=== PATIENT | male | born 1970 | race Hispanic/Latino ===

== ENCOUNTER 2021-04-16 06:15 | Inpatient (IN) | payer SELFPAY ==
[2021-04-16] MEDS ORDERED: SODIUM CHLORIDE 0.9% 1000 ML 1,000 ML IV ONE (06:34)
[2021-04-16] MEDS ORDERED: DEXTROSE 50% IN WATER (25GM) 50 ML SYRINGE IV ONE (06:34)
[2021-04-16] MEDS ORDERED: NALOXONE 2 MG/2 ML INJ IV ONE (06:34)
--- NOTE | 2021-04-16 06:39 | Emergency Department Report ---
HPI - General Time Seen by Provider: 04/16/21 06:34 - HPI HPI: This is a middle-aged male, who appears to be in his 50s, who was brought in by EMS after he was found on the side of the road unresponsive. Apparently there was a bystander who told EMS that the patient had been using heroin and that his name is Gabe. The patient does respond to his name and to tactile stimuli, but just says "yeah" to everything and then goes immediately back to sleep. The patient received 2 mg of intranasal Narcan with EMS without any response. No obvious signs of trauma. ED Review of Systems ROS: Stated complaint: UNRESPONSIVE Other details as noted in HPI Comment: Unobtainable due to pts medical conditions Physical Exam - Physical Exam Physical Exam: GENERAL: The patient is unresponsive. HENT: Normocephalic. Atraumatic. Patient has moist mucous membranes. EYES: Pupils equal reactive to light bilaterally. NECK: Supple. Trachea is midline. CHEST/LUNGS: Clear to auscultation. There is no respiratory distress noted. HEART/CARDIOVASCULAR: Regular. There is no tachycardia. There is no murmur. ABDOMEN: Abdomen is soft. Patient has normal bowel sounds. There is no abdominal distention. SKIN: Skin is warm and dry. NEURO: The patient is intoxicated or sedated, but is essentially unresponsive. He will briefly open his eyes or grunt to his name or tactile stimuli, but goes right back to sleep if not continuously stimulated. MUSCULOSKELETAL: There is no obvious deformity. ED Course - Consultations Consultation #1: 04/16/21 09:55 I spoke to JULIANN Anguiano for [facility] cardiology, and he agreed that we should start heparin on the patient for now, and they will see the patient as a consult. ED Medical Decision Making - Lab Data Result diagrams: 04/16/21 07:18 04/16/21 12:22 Lab Results 04/16/21 04/16/21 04/16/21 Range/Units 07:18 07:18 07:18 WBC 18.5 H (4.5-11.0) K/mm3 RBC 5.48 H (3.65-5.03) M/mm3 Hgb 15.5 H (11.8-15.2) gm/dl Hct 48.2 H (35.5-45.6) % MCV 88 (84-94) fl MCH 28 (28-32) pg MCHC 32 (32-34) % RDW 15.0 (13.2-15.2) % Plt Count 280 (140-440) K/mm3 Lymph % (Auto) 4.1 L (13.4-35.0) % Mcminn % (Auto) 6.9 (0.0-7.3) % Eos % (Auto) 0.1 (0.0-4.3) % Baso % (Auto) 0.4 (0.0-1.8) % Lymph # (Auto) 0.8 L (1.2-5.4) K/mm3 Mcminn # (Auto) 1.3 H (0.0-0.8) K/mm3 Eos # (Auto) 0.0 (0.0-0.4) K/mm3 Baso # (Auto) 0.1 (0.0-0.1) K/mm3 Seg Neutrophils % 88.5 H (40.0-70.0) % Seg Neutrophils # 16.4 H (1.8-7.7) K/mm3 PT 13.6 (12.2-14.9) Sec. INR 0.94 (0.87-1.13) APTT (24.2-36.6) Sec. Sodium 144 (137-145) mmol/L Potassium 6.0 H (3.6-5.0) mmol/L Chloride 103.2 (98-107) mmol/L Carbon Dioxide 27 (22-30) mmol/L Anion Gap 20 mmol/L BUN 25 H (9-20) mg/dL Creatinine 1.9 H (0.8-1.3) mg/dL Estimated GFR 45 ml/min BUN/Creatinine Ratio 13 % Glucose 74 L (75-100) mg/dL Calcium 9.2 (8.4-10.2) mg/dL Total Bilirubin 0.30 (0.1-1.2) mg/dL AST 71 H (5-40) units/L ALT 40 (7-56) units/L Alkaline Phosphatase 111 (35-129) units/L Ammonia (25-60) umol/L Total Creatine Kinase (55-170) units/L Troponin T 0.619 H* (0.00-0.029) ng/mL Total Protein 7.2 (6.3-8.2) g/dL Albumin 4.4 (3.9-5) g/dL Albumin/Globulin Ratio 1.6 % Triglycerides 83 (2-149) mg/dL Cholesterol 188 (50-199) mg/dL LDL Cholesterol Direct 121 (50-130) mg/dL HDL Cholesterol 57 (40-59) mg/dL Cholesterol/HDL Ratio 3.29 % TSH (0.270-4.200) mlU/mL Salicylates (2.8-20.0) mg/dL Acetaminophen (10.0-30.0) ug/mL Plasma/Serum Alcohol (0-0.07) % 04/16/21 04/16/21 04/16/21 Range/Units 07:18 07:18 07:18 WBC (4.5-11.0) K/mm3 RBC (3.65-5.03) M/mm3 Hgb (11.8-15.2) gm/dl Hct (35.5-45.6) % MCV (84-94) fl MCH (28-32) pg MCHC (32-34) % RDW (13.2-15.2) % Plt Count (140-440) K/mm3 Lymph % (Auto) (13.4-35.0) % Mcminn % (Auto) (0.0-7.3) % Eos % (Auto) (0.0-4.3) % Baso % (Auto) (0.0-1.8) % Lymph # (Auto) (1.2-5.4) K/mm3 Mcminn # (Auto) (0.0-0.8) K/mm3 Eos # (Auto) (0.0-0.4) K/mm3 Baso # (Auto) (0.0-0.1) K/mm3 Seg Neutrophils % (40.0-70.0) % Seg Neutrophils # (1.8-7.7) K/mm3 PT (12.2-14.9) Sec. INR (0.87-1.13) APTT (24.2-36.6) Sec. Sodium (137-145) mmol/L Potassium (3.6-5.0) mmol/L Chloride (98-107) mmol/L Carbon Dioxide (22-30) mmol/L Anion Gap mmol/L BUN (9-20) mg/dL Creatinine (0.8-1.3) mg/dL Estimated GFR ml/min BUN/Creatinine Ratio % Glucose (75-100) mg/dL Calcium (8.4-10.2) mg/dL Total Bilirubin (0.1-1.2) mg/dL AST (5-40) units/L ALT (7-56) units/L Alkaline Phosphatase (35-129) units/L Ammonia 23.0 L (25-60) umol/L Total Creatine Kinase (55-170) units/L Troponin T (0.00-0.029) ng/mL Total Protein (6.3-8.2) g/dL Albumin (3.9-5) g/dL Albumin/Globulin Ratio % Triglycerides (2-149) mg/dL Cholesterol (50-199) mg/dL LDL Cholesterol Direct (50-130) mg/dL HDL Cholesterol (40-59) mg/dL Cholesterol/HDL Ratio % TSH 4.650 H (0.270-4.200) mlU/mL Salicylates < 0.3 L (2.8-20.0) mg/dL Acetaminophen (10.0-30.0) ug/mL Plasma/Serum Alcohol (0-0.07) % 04/16/21 04/16/21 04/16/21 Range/Units 07:18 07:18 07:18 WBC (4.5-11.0) K/mm3 RBC (3.65-5.03) M/mm3 Hgb (11.8-15.2) gm/dl Hct (35.5-45.6) % MCV (84-94) fl MCH (28-32) pg MCHC (32-34) % RDW (13.2-15.2) % Plt Count (140-440) K/mm3 Lymph % (Auto) (13.4-35.0) % Mcminn % (Auto) (0.0-7.3) % Eos % (Auto) (0.0-4.3) % Baso % (Auto) (0.0-1.8) % Lymph # (Auto) (1.2-5.4) K/mm3 Mcminn # (Auto) (0.0-0.8) K/mm3 Eos # (Auto) (0.0-0.4) K/mm3 Baso # (Auto) (0.0-0.1) K/mm3 Seg Neutrophils % (40.0-70.0) % Seg Neutrophils # (1.8-7.7) K/mm3 PT (12.2-14.9) Sec. INR (0.87-1.13) APTT (24.2-36.6) Sec. Sodium (137-145) mmol/L Potassium (3.6-5.0) mmol/L Chloride (98-107) mmol/L Carbon Dioxide (22-30) mmol/L Anion Gap mmol/L BUN (9-20) mg/dL Creatinine (0.8-1.3) mg/dL Estimated GFR ml/min BUN/Creatinine Ratio % Glucose (75-100) mg/dL Calcium (8.4-10.2) mg/dL Total Bilirubin (0.1-1.2) mg/dL AST (5-40) units/L ALT (7-56) units/L Alkaline Phosphatase (35-129) units/L Ammonia (25-60) umol/L Total Creatine Kinase 1522 H (55-170) units/L Troponin T (0.00-0.029) ng/mL Total Protein (6.3-8.2) g/dL Albumin (3.9-5) g/dL Albumin/Globulin Ratio % Triglycerides (2-149) mg/dL Cholesterol (50-199) mg/dL LDL Cholesterol Direct (50-130) mg/dL HDL Cholesterol (40-59) mg/dL Cholesterol/HDL Ratio % TSH (0.270-4.200) mlU/mL Salicylates (2.8-20.0) mg/dL Acetaminophen 5.0 L (10.0-30.0) ug/mL Plasma/Serum Alcohol < 0.01 (0-0.07) % 04/16/21 Range/Units 07:18 WBC (4.5-11.0) K/mm3 RBC (3.65-5.03) M/mm3 Hgb (11.8-15.2) gm/dl Hct (35.5-45.6) % MCV (84-94) fl MCH (28-32) pg MCHC (32-34) % RDW (13.2-15.2) % Plt Count (140-440) K/mm3 Lymph % (Auto) (13.4-35.0) % Mcminn % (Auto) (0.0-7.3) % Eos % (Auto) (0.0-4.3) % Baso % (Auto) (0.0-1.8) % Lymph # (Auto) (1.2-5.4) K/mm3 Mcminn # (Auto) (0.0-0.8) K/mm3 Eos # (Auto) (0.0-0.4) K/mm3 Baso # (Auto) (0.0-0.1) K/mm3 Seg Neutrophils % (40.0-70.0) % Seg Neutrophils # (1.8-7.7) K/mm3 PT (12.2-14.9) Sec. INR (0.87-1.13) APTT 30.6 (24.2-36.6) Sec. Sodium (137-145) mmol/L Potassium (3.6-5.0) mmol/L Chloride (98-107) mmol/L Carbon Dioxide (22-30) mmol/L Anion Gap mmol/L BUN (9-20) mg/dL Creatinine (0.8-1.3) mg/dL Estimated GFR ml/min BUN/Creatinine Ratio % Glucose (75-100) mg/dL Calcium (8.4-10.2) mg/dL Total Bilirubin (0.1-1.2) mg/dL AST (5-40) units/L ALT (7-56) units/L Alkaline Phosphatase (35-129) units/L Ammonia (25-60) umol/L Total Creatine Kinase (55-170) units/L Troponin T (0.00-0.029) ng/mL Total Protein (6.3-8.2) g/dL Albumin (3.9-5) g/dL Albumin/Globulin Ratio % Triglycerides (2-149) mg/dL Cholesterol (50-199) mg/dL LDL Cholesterol Direct (50-130) mg/dL HDL Cholesterol (40-59) mg/dL Cholesterol/HDL Ratio % TSH (0.270-4.200) mlU/mL Salicylates (2.8-20.0) mg/dL Acetaminophen (10.0-30.0) ug/mL Plasma/Serum Alcohol (0-0.07) % - EKG Data -: EKG Interpreted by Me EKG shows normal: sinus rhythm, axis (Left axis deviation), intervals (Slightly prolonged QTC), QRS complexes (Left anterior fascicular block), ST-T waves (Lateral and inferior mild ST depressions) Rate: tachycardia (101 bpm) - EKG Data When compared to previous EKG there are: previous EKG unavailable Interpretation: other (Sinus rhythm at 101 bpm, left axis deviation, left anterior fascicular block, slightly prolonged QTC, ST depressions in the inferio r and lateral leads) - Radiology Data Radiology results: report reviewed, image reviewed interpreted by me: Chest x-ray does not show any acute process. There are no pleural effusions, obvious pneumonia and there is no pneumothorax. No widened mediastinum. CT HEAD WITHOUT CONTRAST INDICATION / CLINICAL INFORMATION: Altered Mental Status. TECHNIQUE: All CT scans at this location are performed using CT dose re duction for ALARA by means of automated exposure control. COMPARISON: None available. FINDINGS: HEMORRHAGE: None. EXTRA-AXIAL SPACES: Normal in size and morphology for the patient's age. VENTRICULAR SYSTEM: Normal in size and morphology for the patient's age. CEREBRAL PARENCHYMA: No significant abno rmality. No acute territorial infarct. MIDLINE SHIFT / HERNIATION: None. CEREBELLUM / BRAINSTEM: No significant abnormality. ORBITS: Normal as visualized SOFT TISSUES: No significant abnormality. SKULL: No significant abnormality. PARANASAL SINUSES / MASTOID AIR CELLS: Normal as visualized ADDITIONAL FINDINGS: None. IMPRESSION: 1. No acute intracranial abnormality. CT CERVICAL SPINE WITHOUT CONTRAST INDICATION / CLINICAL INFORMATION: Unresponsive on the side of the road. TECHNIQUE: Axial CT images were obtained through the cervical spine. Sagittal and coronal reformatted images were produced. All CT scans at this location are performed using CT dose reduction for ALARA by means of automated exposure control. COMPARISON: None available. FINDINGS: VERTEBRAE: No significant abnormality. ALIGNMENT: No significant abnormality. DISC SPACES: There is disc space narrowing and endplate osteophytosis at C5-C6 greater than C6-C7. FACET JOINTS: There is moderate right degenerative facet disease at C4-C5. CRANIOCERVICAL JUNCTION:No significant abnormality. SPINAL CANAL: No significant abnormality. PARASPINAL SOFT TISSUES: No significant abnormality. ADDITIONAL FINDINGS: None. LUNG APICES: Centrilobular emphysema. Mucoid material within the trachea. IMPRESSION: 1. No acute fracture or static subluxation of the cervical spine. 2. Degenerative disc and facet disease as above. 3. Emphysema. 4. Mucoid material within the trachea. - Medical Decision Making This patient initially came in unresponsive after he was found laying near the road. A bystander was able to correctly give his name and said that he had been using heroin. However, the patient did not have any initial response to Narcan. He arrived to the emergency department with a GCS of 13 and was initially made a medical emergency. CT scan of the head without contrast did not show any hemorrhage, large vessel occlusion, or any other acute process. CT of the cervical spine does not show any fracture, subluxation, or any acute process. Chest x-ray does not show any pneumonia, pleural effusions, widened mediastinum, pneumothorax, or any acute process. Labs are significant for a leukocytosis of 18,000, hyperkalemia with a potassium of 6, mild renal insufficiency with a GFR of 45, and an elevated first troponin level of 0.6 showing NSTEMI. EKG did not have any morphology consistent with ST elevation myocardial infarction. Patient was given some IV fluid resuscitation, and another dose of Narcan. After this dose of Narcan the patient became much more awake and alert. He was given Kayexalate, calcium and albuterol for the hyperkalemia. Cardiology was contacted and consulted and the patient was started on a heparin drip after heparin bolus. Patient be admitted to the hospital for further evaluation and treatment was accepted for admission by the hospitalist service. Critical Care Time: Yes Critical care time in (mins) excluding proc time.: 40 Critical care attestation.: If time is entered above; I have spent that time in minutes in the direct care of this critically ill patient, excluding procedure time. Critical care time was spent on this patient in doing his initial evaluation, multiple reevaluations, ordering and interpretation of labs and imaging, treatment of his hyperkalemia, IV fluid resuscitation, heparin for treatment of NSTEMI, discus john with the cardiology service. Critical Care Time: 40 minutes ED Disposition Clinical Impression: Unresponsive, NSTEMI (non-ST elevated myocardial infarction), Hyperkalemia, GIGI (acute kidney injury) Disposition: ADMITTED INPATIENT Is pt being admited?: Yes Condition: Serious Time of Disposition: 09:04
--- NOTE | 2021-04-16 06:53 | XRay Report ---
CHEST 1 VIEW 04/16/2021 6:48 AM INDICATION / CLINICAL INFORMATION: Altered mental status. COMPARISON: None available. FINDINGS: SUPPORT DEVICES: None. HEART / MEDIASTINUM: No significant abnormality. LUNGS / PLEURA: No significant pulmonary or pleural abnormality. No pneumothorax. ADDITIONAL FINDINGS: No significant additional findings. IMPRESSION: 1. No acute findings. Signer Name: Jd Gonzalez DO Signed: 04/16/2021 6:49 AM Workstation Name: [id number]
--- NOTE | 2021-04-16 07:11 | Cat Scan Report ---
CT HEAD WITHOUT CONTRAST INDICATION / CLINICAL INFORMATION: Altered Mental Status. TECHNIQUE: All CT scans at this location are performed using CT dose reduction for ALARA by means of automated exposure control. COMPARISON: None available. FINDINGS: HEMORRHAGE: None. EXTRA-AXIAL SPACES: Normal in size and morphology for the patient's age. VENTRICULAR SYSTEM: Normal in size and morphology for the patient's age. CEREBRAL PARENCHYMA: No significant abnormality. No acute territorial infarct. MIDLINE SHIFT / HERNIATION: None. CEREBELLUM / BRAINSTEM: No significant abnormality. ORBITS: Normal as visualized SOFT TISSUES: No significant abnormality. SKULL: No significant abnormality. PARANASAL SINUSES / MASTOID AIR CELLS: Normal as visualized ADDITIONAL FINDINGS: None. IMPRESSION: 1. No acute intracranial abnormality. Signer Name: Jd Gonzalez DO Signed: 04/16/2021 7:07 AM Workstation Name: [id number]
--- NOTE | 2021-04-16 07:15 | Cat Scan Report ---
CT CERVICAL SPINE WITHOUT CONTRAST INDICATION / CLINICAL INFORMATION: Unresponsive on the side of the road. TECHNIQUE: Axial CT images were obtained through the cervical spine. Sagittal and coronal reformatted images were produced. All CT scans at this location are performed using CT dose reduction for ALARA by means of automated exposure control. COMPARISON: None available. FINDINGS: VERTEBRAE: No significant abnormality. ALIGNMENT: No significant abnormality. DISC SPACES: There is disc space narrowing and endplate osteophytosis at C5-C6 greater than C6-C7. FACET JOINTS: There is moderate right degenerative facet disease at C4-C5. CRANIOCERVICAL JUNCTION:No significant abnormality. SPINAL CANAL: No significant abnormality. PARASPINAL SOFT TISSUES: No significant abnormality. ADDITIONAL FINDINGS: None. LUNG APICES: Centrilobular emphysema. Mucoid material within the trachea. IMPRESSION: 1. No acute fracture or static subluxation of the cervical spine. 2. Degenerative disc and facet disease as above. 3. Emphysema. 4. Mucoid material within the trachea. Signer Name: Jd Gonzalez DO Signed: 04/16/2021 7:10 AM Workstation Name: [id number]
[2021-04-16 07:37] LABS: Basophils # (Auto) 0.1 K/mm3 (0.0-0.1); Basophils % (Auto) 0.4 % (0.0-1.8); Eosinophils % (Auto) 0.1 % (0.0-4.3); Hematocrit 48.2 % (35.5-45.6); Hemoglobin 15.5 gm/dl (11.8-15.2); Lymphocytes # (Auto) 0.8 K/mm3 (1.2-5.4); Lymphocytes % (Auto) 4.1 % (13.4-35.0); Mean Corpuscular HGB Conc 32 % (32-34); Mean Corpuscular Volume 88 fl (84-94); Monocytes # (Auto) 1.3 K/mm3 (0.0-0.8); Monocytes % (Auto) 6.9 % (0.0-7.3); Platelet Count 280 K/mm3 (140-440); Red Blood Count 5.48 M/mm3 (3.65-5.03)
[2021-04-16 07:54] LABS: Albumin 4.4 g/dL (3.9-5); Calcium 9.2 mg/dL (8.4-10.2)
[2021-04-16] MEDS ORDERED: ALBUTEROL 2.5 MG/3 ML NEBU IH ONE ×2 (07:58→09:33)
[2021-04-16] MEDS ORDERED: ASPIRIN 300 MG RECT SUPP PR ONE (07:58)
[2021-04-16 08:08] LABS: INR 0.94 (0.87-1.13)
[2021-04-16 08:11] LABS: Chol/HDL Ratio 3.29 %
[2021-04-16] MEDS: CALCIUM GLUCONATE 1,000 MG in SODIUM CHLORIDE 0.9% 100 ML IV ONE ×2 (09:06→10:18)
[2021-04-16] MEDS ORDERED: CALCIUM GLUCONATE 1,000 MG in SODIUM CHLORIDE 0.9% 100 ML IV ONE (09:33)
[2021-04-16] MEDS ORDERED: SODIUM POLYSTYRENE 15 GM/60 ML ORAL LIQD PO ONE (09:34)
[2021-04-16] MEDS ORDERED: HEPARIN 10,000 UNITS/10 ML VIAL IV ONE (10:00)
[2021-04-16] MEDS: HEPARIN/ 0.45% NACL DRIP 25,000 UNIT/500 ML BAG IV SCH (11:03)
[2021-04-16] MEDS ORDERED: DOCUSATE SODIUM 100 MG CAP PO PRN (11:29)
[2021-04-16] MEDS ORDERED: SENNOSIDES 8.6 MG TAB PO PRN (11:29)
[2021-04-16] MEDS ORDERED: MORPHINE 4 MG/1 ML INJ IV PRN (11:29)
[2021-04-16] MEDS ORDERED: DEXTROSE 50% IN WATER (25GM) 50 ML SYRINGE IV PRN (11:29)
[2021-04-16] MEDS ORDERED: ACETAMINOPHEN 325 MG TAB PO PRN (11:29)
[2021-04-16] MEDS ORDERED: ONDANSETRON 4 MG/2 ML INJ IV PRN (11:29)
[2021-04-16 13:03] LABS: Albumin 3.9 g/dL (3.9-5); Calcium 8.8 mg/dL (8.4-10.2)
[2021-04-16 13:05] LABS: INR 0.96 (0.87-1.13)
[2021-04-16] MEDS: INSULIN REGULAR, HUMAN 100 UNITS/1 ML SUB-Q SCH ×2 (13:28→16:43)
--- NOTE | 2021-04-16 15:13 | Consultation ---
History of Present Illness Consult date: 04/16/21 Requesting physician: MARIO RODRIGUEZ Consult reason: other (NSTEMI) History of present illness: Patient is a 50-year-old male with past medical history of drug abuse who is brought to the ED by EMS after being found on the side of the road unresponsive. History taken from documentation due to patient reporting he does not remember and patient refusing to answer questions. Per documentation a bystander reported to EMS that patient was using heroin however patient did not respond to Narcan. Patient then trasnported to [facility]. ED work-up included negative CT head, negative CT spine, hyperkalemia, and elevated troponins of 0.6. At time of interview patient denies any symptoms or complaints including chest pain, shortness of breath, palpitations, diaphoresis, nausea, or vomiting. Patient is previously unknown to our practice. Cardiology is consulted for NSTEMI. Past History Past Medical History: No medical history Past Surgical History: No surgical history Social history: other (Drug use patient will not say wht he uses) Family history: no significant family history Medications and Allergies Allergies Allergy/AdvReac Type Severity Reaction Status Date / Time No Known Allergies Allergy Unverified 04/16/21 09:08 Active Meds: Active Medications Acetaminophen (Acetaminophen 325 Mg Tab) 650 mg PO Q4H PRN PRN Reason: Pain MILD(1-3)/Fever >100.5/PASTOR Hydrocodone Bitart/Acetaminophen (Hydrocodone/Acetaminophen 5-325 Mg Tab) 2 each PO Q6H PRN PRN Reason: Pain, Moderate (4-6) Carvedilol (Carvedilol 6.25 Mg Tab) 6.25 mg PO BID KOLE Dextrose (Dextrose 50% In Water (25gm) 50 Ml Syringe) 50 ml IV Q30MIN PRN; Protocol PRN Reason: Hypoglycemia Docusate Sodium (Docusate Sodium 100 Mg Cap) 100 mg PO PRN PRN PRN Reason: Constipation Famotidine (Famotidine 20 Mg/2 Ml Inj) 10 mg IV BID KOLE Heparin Sodium (Porcine) (Heparin 10,000 Units/10 Ml Vial) 3,600 unit 40 unit/kg (3600 unit) IV Q6H PRN PRN Reason: Anti-Xa Assay < 0.1 units/ml Heparin Sodium/Sodium Chloride (Heparin/ 0.45% Nacl-25,000 Unit/500 Ml) 25,000 unit in 500 mls @ 20 mls/hr IV TITRATE KOLE; Protocol Stop: 04/18/21 10:00 Last Admin: 04/16/21 11:03 Dose: 1,000 units/hr, 20 mls/hr Documented by: Insulin Human Regular (Insulin Regular, Human 100 Units/1 Ml) 0 units SUB-Q ACHS [facility]; Protocol Last Admin: 04/16/21 13:28 Dose: Not Given Documented by: Morphine Sulfate (Morphine 4 Mg/1 Ml Inj) 4 mg IV Q4H PRN PRN Reason: Pain , Severe (7-10) Ondansetron HCl (Ondansetron 4 Mg/2 Ml Inj) 4 mg IV Q8H PRN PRN Reason: Nausea And Vomiting Senna (Sennosides 8.6 Mg Tab) 8.6 mg PO Q12H PRN PRN Reason: Constipation Sodium Chloride (Sodium Chloride 0.9% 10 Ml Flush Syringe) 10 ml IV BID KOLE Sodium Chloride (Sodium Chloride 0.9% 10 Ml Flush Syringe) 10 ml IV PRN PRN PRN Reason: LINE FLUSH Review of Systems Constitutional: no weight loss, no weight gain, no fever Ears, nose, mouth and throat: no tinnitis, no decreased hearing, no nose pain, no sinus pain Cardiovascular: no chest pain, no orthopnea, no palpitations Respiratory: no cough, no cough with sputum, no excessive sputum Gastrointestinal: no abdominal pain, no nausea, no vomiting Musculoskeletal: no neck stiffness, no neck pain Integumentary: no rash, no pruritis, no redness Neurological: no head injury, no transient paralysis Psychiatric: no anxiety, no memory loss Endocrine: no cold intolerance, no heat intolerance Hematologic/Lymphatic: no easy bruising, no easy bleeding Physical Examination Vital Signs Temp Pulse Resp BP Pulse Ox 97.9 F 104 H 20 147/92 97 04/16/21 06:44 04/16/21 06:44 04/16/21 06:44 04/16/21 06:44 04/16/21 06:44 General appearance: no acute distress HEENT: Positive: PERRL, Mucus Membranes Dry Neck: Positive: trachea midline Cardiac: Positive: Reg Rate and Rhythm Lungs: Positive: Wheezes Neuro: Positive: Grossly Intact Abdomen: Positive: Soft, Active Bowel Sounds Skin: Negative: Rash, Suspicious Lesions, Ulceration Extremities: Present: upper extr. pulses, lower extr. pulses. Absent: edema Results 04/16/21 07:18 04/16/21 12:22 Cardiac Enzymes 04/16/21 04/16/21 Range/Units 07:18 12:22 AST 71 H 133 H (5-40) units/L Coagulation 04/16/21 04/16/21 04/16/21 Range/Units 07:18 07:18 12:22 PT 13.6 13.9 (12.2-14.9) Sec. INR 0.94 0.96 (0.87-1.13) APTT 30.6 (24.2-36.6) Sec. Lipids 04/16/21 Range/Units 07:18 Triglycerides 83 (2-149) mg/dL Cholesterol 188 (50-199) mg/dL HDL Cholesterol 57 (40-59) mg/dL Cholesterol/HDL Ratio 3.29 % CBC 04/16/21 Range/Units 07:18 WBC 18.5 H (4.5-11.0) K/mm3 RBC 5.48 H (3.65-5.03) M/mm3 Hgb 15.5 H (11.8-15.2) gm/dl Hct 48.2 H (35.5-45.6) % Plt Count 280 (140-440) K/mm3 Lymph # (Auto) 0.8 L (1.2-5.4) K/mm3 Brown # (Auto) 1.3 H (0.0-0.8) K/mm3 Eos # (Auto) 0.0 (0.0-0.4) K/mm3 Baso # (Auto) 0.1 (0.0-0.1) K/mm3 Comprehensive Metabolic Panel 04/16/21 04/16/21 Range/Units 07:18 12:22 Sodium 144 141 (137-145) mmol/L Potassium 6.0 H 4.8 (3.6-5.0) mmol/L Chloride 103.2 103.7 (98-107) mmol/L Carbon Dioxide 27 27 (22-30) mmol/L BUN 25 H 27 H (9-20) mg/dL Creatinine 1.9 H 1.6 H (0.8-1.3) mg/dL Glucose 74 L 103 H (75-100) mg/dL Calcium 9.2 8.8 (8.4-10.2) mg/dL AST 71 H 133 H (5-40) units/L ALT 40 50 (7-56) units/L Alkaline Phosphatase 111 95 (35-129) units/L Total Protein 7.2 6.7 (6.3-8.2) g/dL Albumin 4.4 3.9 (3.9-5) g/dL - Imaging and Cardiology Echo: report reviewed EKG: report reviewed EKG interpretations - Telemetry EKG Rhythm: Sinus Tachycardia - EKG Sinus rhythms and dysrhythmias: sinus tachycardia Repolarization changes or abnormalities: nonspecific abnormality, ST segment, and/or T wave Assessment and Plan EKG show sinus tach 101. No acute ischemic changes. Troponins 0.6->0.7 Initiate Heparin gtt x 48hrs. Initiate Coreg 6.25mg PO BID No SARA/ARB in setting of GIGI Patient for Lexiscan Stress test Monday. NPO after midnight Monday Echo 04/16/2021-EF 35 to 40%, LV systolic function moderately decreased, hypokinesis in the septal basal inferolateral and anterolateral right ventricular systolic function, right ventricle is mildly dilated. Patient seen in conjunction with Dr. Nails who agrees with this plan of care.Will continue to follow - Patient Problems (1) GIGI (acute kidney injury) Current Visit: Yes Status: Acute (2) Hyperkalemia Current Visit: Yes Status: Acute (3) NSTEMI (non-ST elevated myocardial infarction) Current Visit: Yes Status: Acute (4) Unresponsive Current Visit: Yes Status: Acute
[2021-04-16] MEDS ORDERED: NALOXONE 2 MG/2 ML INJ IV PRN (15:28)
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
[2021-04-16 17:52] LABS: Partial Thromboplastin Time 84.4 Sec. (24.2-36.6)
[2021-04-16 18:21] LABS: Bilirubin,Urine NEG (Negative); Blood,Urine LG (Negative); Color,Urine Yellow (Yellow); Hyaline Casts,Urine 3 /LPF; Mucus,Urine 1+ /HPF; Urobilinogen,Urine < 2.0 mg/dL (<2.0)
[2021-04-16 18:23] LABS: Benzodiazepines Screen,Urine Negative; Cannabinoid Screen,Urine Negative; Cocaine Screen,Urine Negative; Methadone Screen,Urine Negative
[2021-04-16 18:36] LABS: Amphetamine Screen,Urine Positive; Opiate Screen,Urine Positive
[2021-04-16] MEDS ORDERED: hydrALAZINE 20 MG/1 ML INJ IV PRN (22:46)
[2021-04-16] MEDS: HYDROcodone/ACETAMINOPHEN 5-325 MG TAB PO PRN (22:59)
[2021-04-16] MEDS: carvediloL 6.25 MG TAB PO SCH (23:46)
[2021-04-16] MEDS: FAMOTIDINE 20 MG/2 ML INJ IV SCH (23:46)
[2021-04-17] MEDS: HEPARIN 10,000 UNITS/10 ML VIAL IV PRN ×2 (01:00→19:46)
[2021-04-17] MEDS: INSULIN REGULAR, HUMAN 100 UNITS/1 ML SUB-Q SCH ×5 (02:36→22:04)
[2021-04-17 08:14] LABS: Basophils # (Auto) 0.1 K/mm3 (0.0-0.1); Basophils % (Auto) 0.5 % (0.0-1.8); Eosinophils % (Auto) 0.2 % (0.0-4.3); Hematocrit 44.7 % (35.5-45.6); Hemoglobin 14.5 gm/dl (11.8-15.2); Lymphocytes # (Auto) 2.1 K/mm3 (1.2-5.4); Lymphocytes % (Auto) 12.5 % (13.4-35.0); Mean Corpuscular HGB Conc 33 % (32-34); Mean Corpuscular Volume 90 fl (84-94); Monocytes # (Auto) 1.5 K/mm3 (0.0-0.8); Monocytes % (Auto) 8.9 % (0.0-7.3); Platelet Count 228 K/mm3 (140-440); Red Blood Count 4.96 M/mm3 (3.65-5.03); Red Cell Distribution Width 14.8 % (13.2-15.2)
[2021-04-17 08:40] LABS: BUN/Creatinine Ratio 29; Blood Urea Nitrogen 26 mg/dL (9-20); Calcium 8.2 mg/dL (8.4-10.2); Hemolysis Index 12
[2021-04-17] MEDS ORDERED: CALCIUM GLUCONATE 1,000 MG in SODIUM CHLORIDE 0.9% 100 ML IV ONE (10:00)
[2021-04-17] MEDS: HEPARIN/ 0.45% NACL DRIP 25,000 UNIT/500 ML BAG IV SCH (11:26)
[2021-04-17] MEDS: FAMOTIDINE 20 MG/2 ML INJ IV SCH ×2 (11:42→22:00)
[2021-04-17] MEDS: carvediloL 6.25 MG TAB PO SCH ×2 (11:42→22:01)
--- NOTE | 2021-04-17 12:18 | Electrocardiograph Report ---
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
--- NOTE | 2021-04-17 13:52 | Progress Note ---
Assessment and Plan Echo 04/16/2021: EF 35 to 40%, LV systolic function moderately decreased, hypokinesis in the septal basal inferolateral and anterolateral right ventricular systolic function, right ventricle is mildly dilated. Polysubstance abuse (urine tox positive for opiates and amphetamine) Altered mental status Elevated cardiac enzymes Continue heparin drip for a total of 48 hours Continue carvedilol Patient for Lexiscan Stress test Monday. NPO after midnight Monday Subjective Date of service: 04/17/21 Principal diagnosis: Elevated cardiac enzymes Interval history: Patient is sleeping in bed without any significant complaints. He finished his lunch several hours ago without any complaints Objective Vital Signs Temp Pulse Resp BP BP Pulse Ox 04/17/21 12:11 97 F L 88 16 150/87 96 04/17/21 07:38 98.0 F 89 20 128/92 98 04/17/21 03:39 98.0 F 94 H 18 145/92 97 04/17/21 00:41 88 14 168/110 98 04/17/21 00:19 18 97 04/17/21 00:05 92 H 04/16/21 23:43 98.0 F 106 H 19 164/107 96 04/16/21 23:01 92 H 168/110 04/16/21 22:51 88 22 168/110 98 04/16/21 22:41 95 H 18 177/111 98 04/16/21 22:31 96 H 20 177/111 98 04/16/21 22:21 98 H 19 176/110 99 04/16/21 22:11 97 H 18 176/110 98 04/16/21 22:01 96 H 18 168/108 98 04/16/21 21:51 97 H 14 168/108 98 04/16/21 21:45 93 H 19 167/87 98 04/16/21 21:41 94 H 17 170/103 99 04/16/21 21:31 94 H 21 170/103 98 04/16/21 21:29 95 H 20 170/103 98 04/16/21 21:01 93 H 20 164/99 98 04/16/21 20:31 85 22 160/106 98 04/16/21 20:11 98.2 F 81 20 166/91 99 04/16/21 20:01 153/91 99 04/16/21 19:31 164/110 98 04/16/21 19:01 176/109 99 04/16/21 18:31 85 17 164/110 98 04/16/21 18:01 71 15 160/103 98 04/16/21 16:31 82 16 146/96 98 04/16/21 16:01 83 14 146/96 97 04/16/21 15:31 87 15 143/97 98 04/16/21 15:01 88 15 143/97 98 04/16/21 14:31 87 18 129/86 98 04/16/21 14:01 92 H 13 145/102 98 - Physical Examination HEENT: Positive: PERRL, Mucus Membranes Dry Neck: Positive: trachea midline Cardiac: Positive: Reg Rate and Rhythm Lungs: Positive: clear to auscultation, Normal Breath Sounds Neuro: Positive: Grossly Intact Abdomen: Positive: Soft, Active Bowel Sounds Skin: Negative: Rash, Suspicious Lesions, Ulceration Extremities: Present: upper extr. pulses, lower extr. pulses. Absent: edema - Labs and Meds Coagulation 04/16/21 Range/Units 12:22 APTT 84.4 H* (24.2-36.6) Sec. CBC 04/17/21 Range/Units 07:40 WBC 16.5 H (4.5-11.0) K/mm3 RBC 4.96 (3.65-5.03) M/mm3 Hgb 14.5 (11.8-15.2) gm/dl Hct 44.7 (35.5-45.6) % Plt Count 228 (140-440) K/mm3 Lymph # (Auto) 2.1 (1.2-5.4) K/mm3 [place] # (Auto) 1.5 H (0.0-0.8) K/mm3 Eos # (Auto) 0.0 (0.0-0.4) K/mm3 Baso # (Auto) 0.1 (0.0-0.1) K/mm3 Comprehensive Metabolic Panel 04/17/21 Range/Units 07:40 Sodium 134 L (137-145) mmol/L Potassium 4.8 (3.6-5.0) mmol/L Chloride 99.9 (98-107) mmol/L Carbon Dioxide 25 (22-30) mmol/L BUN 26 H (9-20) mg/dL Creatinine 0.9 (0.8-1.3) mg/dL Glucose 92 (75-100) mg/dL Calcium 8.2 L (8.4-10.2) mg/dL - Imaging and Cardiology EKG: report reviewed Echo: report reviewed - EKG Sinus rhythms and dysrhythmias: sinus tachycardia Repolarization changes or abnormalities: nonspecific abnormality, ST segment, and/or T wave
--- NOTE | 2021-04-17 14:59 | Ultrasound Report ---
ULTRASOUND RENAL INDICATION: Evaluate for renal disease COMPARISON: No relevant prior imaging study available. FINDINGS: RIGHT KIDNEY: Size: 11.1 cm. Echogenicity: Normal. Cortical thickness: Normal. Stones: None. Hydronephrosis: None. Cyst or mass: A cyst is seen measuring 2.5 cm which on sagittal images appear to be in the upper pole . On transverse images per the technologist this is in the lower pole though perhaps this is a separa te 9 mm cyst.. LEFT KIDNEY: Size: 11.5 cm. Echogenicity: Normal. Cortical thickness: Normal. Stones: None. Hydronephrosis: None. Cyst or mass: None. Urinary Bladder: No significant abnormality. Free Fluid: None. Additional Findings: None. IMPRESSION: No acute sonographic abnormality of the kidneys Signer Name: Evan Frances MD Signed: 04/17/2021 2:54 PM Workstation Name: [id number]
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
[2021-04-17] MEDS: HYDROcodone/ACETAMINOPHEN 5-325 MG TAB PO PRN (19:51)
[2021-04-18] MEDS: HEPARIN/ 0.45% NACL DRIP 25,000 UNIT/500 ML BAG IV SCH (03:22)
[2021-04-18 03:46] LABS: Basophils # (Auto) 0.1 K/mm3 (0.0-0.1); Basophils % (Auto) 1.2 % (0.0-1.8); Eosinophils # (Auto) 0.1 K/mm3 (0.0-0.4); Eosinophils % (Auto) 0.5 % (0.0-4.3); Hematocrit 40.1 % (35.5-45.6); Hemoglobin 13.3 gm/dl (11.8-15.2); Lymphocytes # (Auto) 2.6 K/mm3 (1.2-5.4); Lymphocytes % (Auto) 26.3 % (13.4-35.0); Mean Corpuscular HGB Conc 33 % (32-34); Mean Corpuscular Volume 88 fl (84-94); Platelet Count 195 K/mm3 (140-440); Red Blood Count 4.57 M/mm3 (3.65-5.03); Red Cell Distribution Width 14.8 % (13.2-15.2)
[2021-04-18 03:56] LABS: BUN/Creatinine Ratio 28; Blood Urea Nitrogen 22 mg/dL (9-20); Calcium 8.6 mg/dL (8.4-10.2); Hemolysis Index 7
[2021-04-18] MEDS: carvediloL 6.25 MG TAB PO SCH (08:40)
[2021-04-18] MEDS: INSULIN REGULAR, HUMAN 100 UNITS/1 ML SUB-Q SCH (08:56)
[2021-04-18] MEDS: FAMOTIDINE 20 MG/2 ML INJ IV SCH (09:04)
[2021-04-18 09:05] VITALS: BP 168/104
[2021-04-18] MEDS ORDERED: K-PHOS NEUTRAL 250 MG TAB PO SCH (10:00)
--- NOTE | 2021-04-18 10:24 | Electrocardiograph Report ---
[facility] Test Date: 2021-04-16 Test Time: 20:49:16 Pat Name: JOSSELINE MCKENNA Department: Room: A486 1 Gender: M Thread Laster: : 1970 Requested By: JANE DE SOUZA Order Number: [id number] Reading MD: Mary Dickson Measurements Intervals [place] Rate: 94 P: 61 MD: 134 QRS: -67 QRSD: 119 T: 77 QT: 382 QTc: 479 Interpretive Statements Sinus rhythm Right atrial enlargement Left anterior fascicular block Left ventricular hypertrophy Compared to ECG 04/16/2021 17:46:34 Atrial abnormality now present Atrial premature complex(es) no longer present Early repolarization no longer present Electronically Signed On 04-18-2021 10:24:25 EDT by Mary Dickson
--- NOTE | 2021-04-18 10:24 | Electrocardiograph Report ---
[facility] Test Date: 2021-04-16 Test Time: 17:46:34 Pat Name: JOSSELINE MCKENNA Department: Room: A486 1 Gender: M Rate Inserter: [id number] : 1970 Requested By: JANE DE SOUZA Order Number: [id number] Reading MD: Mary Dickson Measurements Intervals [place] Rate: 72 P: 49 NM: 135 QRS: -74 QRSD: 112 T: -38 QT: 439 QTc: 478 Interpretive Statements Sinus rhythm Atrial premature complex Left anterior fascicular block LVH with secondary repolarization abnormality Compared to ECG 04/16/2021 08:37:15 Atrial premature complex(es) now present Left ventricular hypertrophy now present Early repolarization now present Sinus tachycardia no longer present T-wave abnormality no longer present Prolonged QT interval no longer present Electronically Signed On 04-18-2021 10:24:04 EDT by Mary Dickson
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
== END 2021-04-18 11:40 | disposition left against medical advice (07) | DRG 280 ==
LOC: EDBD → ED 06:15 → 4A 09:04
PROVIDERS: ADMIT Internal Medicine; ATTEND Student in an Organized Health Care Education/Training Program
DX: I21.4 Non-ST elevation (NSTEMI) myocardial infarction (principal); G92.9 Unspecified toxic encephalopathy; N17.9 Acute kidney failure, unspecified; R41.89 Other symptoms and signs involving cognitive functions and awareness; E87.5 Hyperkalemia; Z20.822 Contact with and (suspected) exposure to COVID-19; N18.31 Chronic kidney disease, stage 3a; D72.829 Elevated white blood cell count, unspecified; E78.5 Hyperlipidemia, unspecified; Z59.00 Homelessness unspecified
CPT/HCPCS: 36415; 70450; 71045; 72125; 76770; 80048; 80053; 80061; 80307; 80320; 81001; 82140; 82550; 82607; 82747; 82962; 83036; 83735; 84100; 84425; 84439; 84443; 84484; 85025; 85520; 85610; 85730; 87086; 93005; 93306; 94640; G0378; G0480; J0360; J0610; J1644; J2270; J2310; J2405; J7030